=== PATIENT | male | born 1990 | race Two or more races ===

== ENCOUNTER 2023-12-07 12:27 | Emergency (ER) | payer SELFPAY ==
[~2023-12-07] VITALS: Ht 182.9 cm; Wt 77.0 kg
[2023-12-07 12:30] VITALS: BP 112/78; PULSE 91; RESP 18; TEMP 97.6; O2SAT 97
== END 2023-12-07 16:21 | disposition left against medical advice (07) ==
LOC: ER 12:27
DX: M54.6 Pain in thoracic spine (principal); Z53.21 Procedure and treatment not carried out due to patient leaving prior to being seen by health care provider

== ENCOUNTER 2023-12-09 08:49 | Emergency (ER) | payer SELFPAY ==
[~2023-12-09] VITALS: Ht 177.8 cm; Wt 64.0 kg
[2023-12-09 08:52] VITALS: O2SAT 99
[2023-12-09 09:18] LABS: HEMATOCRIT. 43.4 % (42.0-52.0); HEMOGLOBIN. 14.8 g/dL (14.0-18.0); MEAN CORPUSCULAR HEMOGLOBIN 31.9 pg (28.0-32.0); MEAN CORPUSCULAR HGB CONC 34.1 g/dL (31.0-37.0); MEAN CORPUSCULAR VOLUME 93.5 fL (80.0-94.0); MEAN PLATELET VOLUME 7.5 fl (7.4-10.4); PLATELET 328 x1000/uL (130-400); RED BLOOD CELL COUNT 4.64 mill/uL (4.7-6.1); RED CELL DISTRIBUTION WIDTH 12.4 % (11.6-14.6); WHITE BLOOD COUNT 16.1 x1000/uL (4.5-11.0)
[2023-12-09 09:23] LABS: DIFFERENTIAL COMMENT 1
[2023-12-09 09:24] LABS: CHLORIDE 100 mEq/L (98-107); POTASSIUM 3.6 mEq/L (3.5-5.1); SODIUM 132 mEq/L (136-145)
[2023-12-09 09:25] LABS: CALCIUM 8.5 mg/dL (8.7-10.4); CARBON DIOXIDE 29 mEq/L (21-32)
[2023-12-09 09:30] LABS: CREATININE 0.8 mg/dL (0.6-1.3); GLUCOSE 145 mg/dL (70-105); UREA NITROGEN BLOOD 9 mg/dL (9-23)
[2023-12-09 09:31] LABS: ETHANOL BLOOD < 10 mg/dL (<10)
[2023-12-09 09:58] LABS: PLATELET ESTIMATE NORMAL
[2023-12-09 10:47] VITALS: BP 115/65; PULSE 90; RESP 13; TEMP 98.9
== END 2023-12-09 11:23 | disposition home or self-care (01) ==
LOC: ER 08:59
DX: F11.10 Opioid abuse, uncomplicated (principal); F19.10 Other psychoactive substance abuse, uncomplicated
CPT/HCPCS: 36415; 71045; 80048; 80320; 85025; 99284; G0480